=== PATIENT | female | born 1990 | race Caucasian/White ===

== ENCOUNTER 2025-09-01 04:25 | Emergency (ER) | payer OTHER ==
[~2025-09-01] VITALS: Ht 162.6 cm; Wt 87.0 kg
[2025-09-01 04:33] VITALS: O2SAT 99
[2025-09-01] MEDS ORDERED: IBUP-1455 MT (04:48)
[2025-09-01] MEDS ORDERED: T3 PO (04:48)
[2025-09-01] MEDS ORDERED: AMOX-494 MT (04:48)
[2025-09-01] MEDS: KETOROLAC 30MG/ML VIAL IM ONE (04:55)
[2025-09-01 04:57] VITALS: BP 122/87; PULSE 82; RESP 18; TEMP 37.1; O2SAT 99
== END 2025-09-01 05:03 | disposition home or self-care (01) ==
LOC: ER 04:42
DX: H92.02 Otalgia, left ear (principal); K08.89 Other specified disorders of teeth and supporting structures; Z79.899 Other long term (current) drug therapy
CPT/HCPCS: 99283; 81025; 96372; J1885